=== PATIENT | male | born 1950 | race Caucasian/White ===

== ENCOUNTER 2019-05-15 17:38 | Emergency (ER) | payer OTHER ==
[2019-05-15] MEDS ORDERED: Sodium Chloride 0.9% 10 ML Syringe FLUSH PRN ×2 (17:43)
[2019-05-15] MEDS ORDERED: Aspirin 81 MG Tab.Chew PO ONE (17:53)
--- NOTE | 2019-05-15 17:57 | EDM.PDOC ---
<OfficerReese - Last Filed: 05/15/19 17:51> ED HPI GENERAL MEDICAL PROBLEM - General Stated Complaint: STROKE Time Seen by Provider: 05/15/19 17:42 Source of Information: Reports: Patient, EMS, RN Notes Reviewed History Limitations: Reports: No Limitations - History of Present Illness INITIAL COMMENTS - FREE TEXT/NARRATIVE: 68-year-old gentleman presents emergency department today via EMS services, last known well time was approximately 18 hours prior, he does admit to having some nausea and vomiting dry heaves was on the floor however when he awoke he had difficulty getting to the phone was found by friends this afternoon. EMS services were called stroke alert was called in the field unfortunately aircraft cannot fly due to weather. - Related Data Allergies Allergy/AdvReac Type Severity Reaction Status Date / Time No Known Allergies Allergy Verified 05/15/19 18:07 Home Meds: Home Meds Aspirin 81 mg PO DAILY 05/15/19 [History] Diclofenac Sodium [Voltaren] 75 mg PO BID 05/15/19 [History] Insulin Glarg,Human.Rec.Analog [Lantus Solostar] 24 units SUBCNJ DAILY 05/15/19 [History] amLODIPine [Norvasc] 5 mg PO DAILY 05/15/19 [History] atorvaSTATin [Lipitor] 40 mg PO DAILY 05/15/19 [History] glipiZIDE [Glucotrol XL] 10 mg PO BID 05/15/19 [History] metFORMIN [Glucophage] 1,000 mg PO DAILY 05/15/19 [History] Past Medical History Cardiovascular History: Reports: Blood Clots/VTE/DVT, Hypertension Social & Family History - Tobacco Use Smoking Status *Q: Current Every Day Smoker ED ROS GENERAL - Review of Systems Review Of Systems: See Below Constitutional: Reports: No Symptoms HEENT: Reports: Eye Discharge Respiratory: Reports: No Symptoms Cardiovascular: Reports: No Symptoms GI/Abdominal: Reports: No Symptoms : Reports: No Symptoms Musculoskeletal: Reports: No Symptoms Skin: Reports: No Symptoms Neurological: Reports: Difficulty Walking, Weakness ED EXAM, NEURO - Physical Exam Exam: See Below Text/Narrative:: General: Male, not in any distress, alert and oriented x3 HEENT: head is dried blood is appreciated on the helix of the left ear and left corner of the mouth he was normocephalic, eyes pupils equal round reactive to light, sclera clear no conjunctivitis appreciated, extraocular eye movements intact visual locke are full. Ears tympanic membranes clear and ocasio landmarks and light reflex are present bilaterally canals are clear. Nose no septal deviation, nares are clear, no blood present. Mouth mucosa is moist and pink no erythema or exudate noted in soft palate, tongue is midline uvula is midline, dentition is intact. Neck: Supple no thyromegaly no tracheal deviation. Nodes: Cervical nodes subclavicular nodes nontender no palpable lymphadenopathy noted. Lungs: clear to auscultation bilaterally with symmetrical respirations, no adventitious noise appreciated. CV: Regular rate and rhythm S1 and S2 appreciated no murmurs rubs or gallops noted. Abdomen: Soft, nontender, no palpable masses or organomegaly appreciated, no distention no guarding bowel sounds are present, . Neuro: Cranial nerves II test with pupillary light reflex 5 mm to 3 mm bilaterally, CN III test pupillary constriction, lid elevation and eye abduction bilaterally, CN IV downward movement of eyes bilaterally, CN V good jaw movement, CN lateral deviation of the eyes bilaterally to finger movement , CN VII symmetrical smile shows teeth without difficulty, CN VIII pass finger rub to ears bilaterally, CN IX adequate voice and tone, CN X adequate voice and tone no difficulty swallowing, CN XI can shrug shoulders without difficulty, CN XII can stick tongue out without difficulty, cranial nerves II to XII intact as tested, power is 5 out 5 in upper and lower extremities on the right, left lower extremity is a 4 out of 5 left upper extremity is 2 out of 5, p Skin: Warm and dry, intact Extremities: No lower extremity edema appreciated, pedal pulse is +2. Course - Vital Signs Last Recorded V/S: Last Vital Signs Temp 98.8 F 05/15/19 17:55 Pulse 95 05/15/19 18:24 Resp 13 05/15/19 18:24 BP 148/78 H 05/15/19 18:24 Pulse Ox 98 05/15/19 18:24 - Orders/Labs/Meds Orders: Active Orders 24 hr Category Date Time Status EKG Documentation Completion [RC] ASDIRECTED Care 05/15/19 17:44 Active Peripheral IV Care [RC] . DIRECTED Care 05/15/19 17:44 Active Peripheral IV Insertion Adult [OM.PC] Urgent Oth 05/15/19 17:43 Ordered EKG 12 Lead [EK] Urgent Ther 05/15/19 17:43 Ordered Labs: Laboratory Tests 05/15/19 05/15/19 05/15/19 Range/Units 17:57 17:57 17:57 WBC 13.7 H (4.5-11.0) K/uL RBC 4.56 (4.30-5.90) M/uL Hgb 14.5 (12.0-15.0) g/dL Hct 42.8 (40.0-54.0) % MCV 94 (80-98) fL MCH 32 H (27-31) pg MCHC 34 (32-36) % Plt Count 208 (150-400) K/uL Neut % (Auto) 87 H (36-66) % Lymph % (Auto) 7 L (24-44) % Summers % (Auto) 6 (2-6) % Eos % (Auto) 0 L (2-4) % Baso % (Auto) 0 (0-1) % Sodium 139 L (140-148) mmol/L Potassium 4.6 (3.6-5.2) mmol/L Chloride 103 (100-108) mmol/L Carbon Dioxide 22 (21-32) mmol/L Anion Gap 18.6 H (5.0-14.0) mmol/L BUN 19 H (7-18) mg/dL Creatinine 1.4 H (0.8-1.3) mg/dL Est Cr Clr Drug Dosing 45.75 mL/min Estimated GFR (MDRD) 50 L (>60) Glucose 203 H (74-106) mg/dL Lactic Acid (0.4-2.0) mmol/L Calcium 9.7 (8.5-10.1) mg/dL Magnesium 1.4 L (1.8-2.4) mg/dL Total Bilirubin 0.5 (0.2-1.0) mg/dL AST 34 (15-37) U/L ALT 48 (12-78) U/L Alkaline Phosphatase 116 (46-116) U/L Ammonia 7 L (11-32) mmol/L Creatine Kinase (39-308) U/L Troponin I 0.585 H* (0.000-0.056) ng/mL Total Protein 7.5 (6.4-8.2) g/dL Albumin 4.0 (3.4-5.0) g/dL Globulin 3.5 (2.3-3.5) g/dL Albumin/Globulin Ratio 1.1 L (1.2-2.2) Urine Color (YELLOW) Urine Appearance (CLEAR) Urine pH (5.0-8.0) Ur Specific [place] (1.008-1.030) Urine Protein (NEGATIVE) mg/dL Urine Glucose (UA) (NEGATIVE) mg/dL Urine Ketones (NEGATIVE) mg/dL Urine Occult Blood (NEGATIVE) Urine Nitrite (NEGATIVE) Urine Bilirubin (NEGATIVE) Urine Urobilinogen (0.2-1.0) EU/dL Ur Leukocyte Esterase (NEGATIVE) Urine RBC (0-5) Urine WBC (0-5) Ur Epithelial Cells Amorphous Sediment Urine Bacteria Urine Mucus Ethyl Alcohol mg/dL 05/15/19 05/15/19 05/15/19 Range/Units 17:57 17:57 17:57 WBC (4.5-11.0) K/uL RBC (4.30-5.90) M/uL Hgb (12.0-15.0) g/dL Hct (40.0-54.0) % MCV (80-98) fL MCH (27-31) pg MCHC (32-36) % Plt Count (150-400) K/uL Neut % (Auto) (36-66) % Lymph % (Auto) (24-44) % Summers % (Auto) (2-6) % Eos % (Auto) (2-4) % Baso % (Auto) (0-1) % Sodium (140-148) mmol/L Potassium (3.6-5.2) mmol/L Chloride (100-108) mmol/L Carbon Dioxide (21-32) mmol/L Anion Gap (5.0-14.0) mmol/L BUN (7-18) mg/dL Creatinine (0.8-1.3) mg/dL Est Cr Clr Drug Dosing mL/min Estimated GFR (MDRD) (>60) Glucose (74-106) mg/dL Lactic Acid 3.4 H (0.4-2.0) mmol/L Calcium (8.5-10.1) mg/dL Magnesium (1.8-2.4) mg/dL Total Bilirubin (0.2-1.0) mg/dL AST (15-37) U/L ALT (12-78) U/L Alkaline Phosphatase (46-116) U/L Ammonia (11-32) mmol/L Creatine Kinase 829 H (39-308) U/L Troponin I (0.000-0.056) ng/mL Total Protein (6.4-8.2) g/dL Albumin (3.4-5.0) g/dL Globulin (2.3-3.5) g/dL Albumin/Globulin Ratio (1.2-2.2) Urine Color (YELLOW) Urine Appearance (CLEAR) Urine pH (5.0-8.0) Ur Specific [place] (1.008-1.030) Urine Protein (NEGATIVE) mg/dL Urine Glucose (UA) (NEGATIVE) mg/dL Urine Ketones (NEGATIVE) mg/dL Urine Occult Blood (NEGATIVE) Urine Nitrite (NEGATIVE) Urine Bilirubin (NEGATIVE) Urine Urobilinogen (0.2-1.0) EU/dL Ur Leukocyte Esterase (NEGATIVE) Urine RBC (0-5) Urine WBC (0-5) Ur Epithelial Cells Amorphous Sediment Urine Bacteria Urine Mucus Ethyl Alcohol < 3 mg/dL 05/15/19 Range/Units 18:09 WBC (4.5-11.0) K/uL RBC (4.30-5.90) M/uL Hgb (12.0-15.0) g/dL Hct (40.0-54.0) % MCV (80-98) fL MCH (27-31) pg MCHC (32-36) % Plt Count (150-400) K/uL Neut % (Auto) (36-66) % Lymph % (Auto) (24-44) % Summers % (Auto) (2-6) % Eos % (Auto) (2-4) % Baso % (Auto) (0-1) % Sodium (140-148) mmol/L Potassium (3.6-5.2) mmol/L Chloride (100-108) mmol/L Carbon Dioxide (21-32) mmol/L Anion Gap (5.0-14.0) mmol/L BUN (7-18) mg/dL Creatinine (0.8-1.3) mg/dL Est Cr Clr Drug Dosing mL/min Estimated GFR (MDRD) (>60) Glucose (74-106) mg/dL Lactic Acid (0.4-2.0) mmol/L Calcium (8.5-10.1) mg/dL Magnesium (1.8-2.4) mg/dL Total Bilirubin (0.2-1.0) mg/dL AST (15-37) U/L ALT (12-78) U/L Alkaline Phosphatase (46-116) U/L Ammonia (11-32) mmol/L Creatine Kinase (39-308) U/L Troponin I (0.000-0.056) ng/mL Total Protein (6.4-8.2) g/dL Albumin (3.4-5.0) g/dL Globulin (2.3-3.5) g/dL Albumin/Globulin Ratio (1.2-2.2) Urine Color Yellow (YELLOW) Urine Appearance Clear (CLEAR) Urine pH 5.5 (5.0-8.0) Ur Specific [place] 1.025 (1.008-1.030) Urine Protein 30 H (NEGATIVE) mg/dL Urine Glucose (UA) 250 H (NEGATIVE) mg/dL Urine Ketones 15 H (NEGATIVE) mg/dL Urine Occult Blood Trace-lysed H (NEGATIVE) Urine Nitrite Negative (NEGATIVE) Urine Bilirubin Negative (NEGATIVE) Urine Urobilinogen 0.2 (0.2-1.0) EU/dL Ur Leukocyte Esterase Negative (NEGATIVE) Urine RBC Not seen (0-5) Urine WBC 0-5 (0-5) Ur Epithelial Cells Rare Amorphous Sediment Not seen Urine Bacteria Few Urine Mucus Few Ethyl Alcohol mg/dL Meds: Medications Discontinued Medications Generic Name Dose Route Start Last Admin Trade Name Freq PRN Reason Stop Dose Admin Aspirin 324 mg 05/15/19 17:53 05/15/19 18:19 Aspirin PO 05/15/19 17:54 324 mg ONETIME ONE Administration Sodium Chloride 1,000 mls @ 500 mls/hr 05/15/19 18:45 05/15/19 18:43 Normal Saline IV 500 mls/hr ASDIRECTED FIGUEROA Administration Sodium Chloride 10 ml 05/15/19 17:43 Saline Flush FLUSH ASDIRECTED PRN Keep Vein Open Sodium Chloride 10 ml 05/15/19 17:43 Saline Flush FLUSH ASDIRECTED PRN Keep Vein Open Departure - Departure Disposition: DC/Tfer to Other 70 Clinical Impression: Elevated troponin Cerebrovascular accident (CVA) Qualifiers: CVA mechanism: unspecified Qualified Code(s): I63.9 - Cerebral infarction, unspecified - Discharge Information Referrals: PCP,None [Primary Care Provider] - Forms: ED Department Discharge Care Plan Goals: Patient will be transferred to [facility] for further neurology workup due to likely right-sided ischemic CVA. <Evna Demarco - Last Filed: 05/15/19 22:11> Course - Re-Assessments/Exams Free Text/Narrative Re-Assessment/Exam: 05/15/19 18:33 68-year-old male with likely right ischemic event, causing some left-sided weakness. Initial workup and evaluation with Dr. Officer, CT scan is negative. Creatinine kinase 829, white count 13.7. Discussed his condition with interventional neurology in [place], they recommended admission to the hospitalist service for stroke workup but no acute intervention. Dr. Astudillo kindly agreed to accept the patient for the hospitalist service. He'll be transferred with IV fluids running. 05/15/19 18:34 Patient was accepted at 1830 p.m. 05/15/19 18:51 Chemistry profile returned, creatinine is 1.4 and GFR 50. His troponin was elevated at 0.58. This was relayed to [place]. 05/15/19 19:07 Urine returned with some glucose, mild concentration with ketones but no inflammation or infection. Departure - Departure Time of Disposition: 19:05
--- NOTE | 2019-05-15 18:13 | CRLCT ---
INDICATION: LOC following fall TECHNIQUE: CT head without contrast. COMPARISON: None FINDINGS: CSF spaces: Within normal limits for age. Brain parenchyma: The ocasio-white differentiation is normal. No sign of mass, hemorrhage, or midline shift. Skull base and calvarium: The visualized paranasal sinuses and mastoid air cells demonstrate no acute or significant findings. The visualized orbits are grossly unremarkable. No skull fractures. IMPRESSION: Unremarkable noncontrast head CT. Dictated by Bertin Mccullough MD @ 05/15/2019 6:12:11 PM Please note that all CT scans at this facility use dose modulation, iterative reconstruction, and/or weight-based dosing when appropriate to reduce radiation dose to as low as reasonably achievable. Dictated by: Bertin Mccullough MD @ 05/15/2019 18:12:18 (Electronically Signed)
[2019-05-15] MEDS ORDERED: Sodium Chloride 0.9% 1,000 ML IV SCH (18:45)
== END 2019-05-15 19:50 | disposition other institution (70) ==
LOC: JP.ED 17:38
DX: R79.89 Other specified abnormal findings of blood chemistry (principal); I63.9 Cerebral infarction, unspecified; I10 Essential (primary) hypertension; F17.200 Nicotine dependence, unspecified, uncomplicated; Z79.82 Long term (current) use of aspirin; Z79.899 Other long term (current) drug therapy
CPT/HCPCS: 36415; 70450; 80053; 80320; 81001; 82140; 82550; 83605; 83735; 84484; 85025; 93005; 96360; 99285; A9270; J7030; G0480

== ENCOUNTER 2023-06-27 05:13 | Emergency (ER) | payer OTHER, MEDICARE ==
[2023-06-27] MEDS ORDERED: Sodium Chloride 0.9% 10 ML Syringe FLUSH PRN ×2 (05:21→06:17)
[2023-06-27 05:39] LABS: BASOPHILS ABSOLUTE AUTO 0.04 K/uL (0.00-0.10); BASOPHILS PERCENT AUTO 0.4 % (0.1-1.3); EOSINOPHILS ABSOLUTE AUTO 0.05 K/uL (0.00-0.40); EOSINOPHILS PERCENT AUTO 0.5 % (0.0-5.4); HEMATOCRIT 44.7 % (38.4-49.7); HEMOGLOBIN 15.2 g/dL (12.9-16.9); IMMATURE GRAN ABSOLUTE AUTO 0.06 K/uL (0.00-0.23); IMMATURE GRAN PERCENT AUTO 0.6 % (0.0-0.7); LYMPHOCYTES PERCENT AUTO 22.5 % (11.4-47.7); MEAN CORPUSCULAR HEMOGLOBIN 31.7 pg (31.6-35.5); MEAN CORPUSCULAR VOLUME 93.1 fL (81.4-99.0); MONOCYTES PERCENT AUTO 5.1 % (3.3-12.6); NEUTROPHILS ABSOLUTE AUTO 6.93 K/uL (1.0-7.6); NEUTROPHILS PERCENT AUTO 70.9 % (40.0-78.1); PLATELET COUNT,PLT 188 K/uL (130-375); WHITE BLOOD CELL COUNT,WBC 9.8 K/uL (3.2-11.0)
[2023-06-27 06:09] LABS: ALANINE AMINOTRANSFERASE,ALT 14 U/L (12-78); ALBUMIN 3.4 g/dL (3.4-5.0); ALKALINE PHOSPHATASE 113 U/L (46-116); ASPARTATE AMNIOTRANSFERASE,AST 10 U/L (15-37); BILIRUBIN TOTAL 0.4 mg/dL (0.2-1.0); BLOOD UREA NITROGEN,BUN 21 mg/dL (7-18); C-REACTIVE PROTEIN 0.68 mg/dL (0.0-0.3); CALCIUM 8.7 mg/dL (8.5-10.1); CARBON DIOXIDE,CO2 26 mmol/L (21-32); CHLORIDE,CL 103 mmol/L (100-108); CREATININE 1.5 mg/dL (0.8-1.3); EST CRCL DRUG DOSING (CG) 38.15 mL/min; ESTIMATED GFR 49 mL/min (>60); GLUCOSE RANDOM 202 mg/dL (74-106); POTASSIUM,K 3.8 mmol/L (3.6-5.2); PROTEIN TOTAL,TP 6.8 g/dL (6.4-8.2); SODIUM,NA 139 mmol/L (140-148)
[2023-06-27 06:10] LABS: ANION GAP 13.8 mmol/L (5.0-14.0)
[2023-06-27 06:14] LABS: LACTIC ACID 2.3 mmol/L (0.4-2.0)
[2023-06-27] MEDS ORDERED: Iopamidol 612 MG/ML 100 ML Bottle IV PRN (06:17)
[2023-06-27] MEDS ORDERED: Sodium Chloride 0.9% 50 ML IV SCH (06:30)
[2023-06-27 06:34] LABS: CORONAVIRUS COVID-19 NAA NEGATIVE (NEGATIVE); INFLUENZA A NAA NEGATIVE (NEGATIVE); INFLUENZA B NAA NEGATIVE (NEGATIVE); RESPIRATORY SYNCYTIAL VIR NAA NEGATIVE (NEGATIVE)
[2023-06-27] MEDS ORDERED: Acetaminophen/HYDROcodone 325-5 MG Tab PO ONE (06:38)
[2023-06-27] MEDS ORDERED: Tamsulosin 0.4 MG Cap.ER PO ONE (06:38)
== END 2023-06-27 06:57 | disposition home or self-care (01) ==
LOC: JP.ED 05:13
DX: N20.1 Calculus of ureter (principal); N23 Unspecified renal colic; I10 Essential (primary) hypertension; E11.9 Type 2 diabetes mellitus without complications; Z79.84 Long term (current) use of oral hypoglycemic drugs; Z79.4 Long term (current) use of insulin; Z79.02 Long term (current) use of antithrombotics/antiplatelets; Z79.899 Other long term (current) drug therapy; Z20.822 Contact with and (suspected) exposure to COVID-19; M19.90 Unspecified osteoarthritis, unspecified site
CPT/HCPCS: 0241U; 36415; 74177; 80053; 83605; 84145; 85025; 86140; 99284; A9270; J3490; Q9967

== ENCOUNTER 2023-06-28 13:18 | Emergency (ER) | payer MEDICARE, OTHER ==
[2023-06-28] MEDS ORDERED: Naloxone 0.4 MG/ML SDV IVPUSH PRN (13:28)
[2023-06-28] MEDS: Sodium Chloride 0.9% 1,000 ML IV ONE (13:53)
[2023-06-28 14:02] LABS: BASOPHILS PERCENT AUTO 0.1 % (0.1-1.3); HEMATOCRIT 44.3 % (38.4-49.7); HEMOGLOBIN 15.2 g/dL (12.9-16.9); IMMATURE GRAN ABSOLUTE AUTO 0.05 K/uL (0.00-0.23); IMMATURE GRAN PERCENT AUTO 0.4 % (0.0-0.7); LYMPHOCYTES ABSOLUTE AUTO 0.75 K/uL (0.8-3.3); MEAN CORPUSCULAR HEMOGLOBIN 31.7 pg (31.6-35.5); MEAN CORPUSCULAR HGB CONC 34.3 g/dL (31.6-35.5); MEAN CORPUSCULAR VOLUME 92.5 fL (81.4-99.0); MONOCYTES ABSOLUTE AUTO 0.81 K/uL (0.20-0.90); MONOCYTES PERCENT AUTO 6.5 % (3.3-12.6); NEUTROPHILS ABSOLUTE AUTO 10.89 K/uL (1.0-7.6); PLATELET COUNT,PLT 152 K/uL (130-375); RED BLOOD CELL COUNT 4.79 M/uL (4.14-5.76); WHITE BLOOD CELL COUNT,WBC 12.5 K/uL (3.2-11.0)
[2023-06-28 14:04] LABS: BASOPHILS ABSOLUTE AUTO 0.01 K/uL (0.00-0.10)
[2023-06-28] MEDS: HYDROmorphone 0.5 MG/0.5 ML Syringe IVPUSH ONE (14:08)
[2023-06-28] MEDS: Sodium Chloride 0.9% 10 ML Syringe FLUSH PRN (14:09)
[2023-06-28 14:15] LABS: CALCIUM 9.1 mg/dL (8.5-10.1); CREATININE 2.2 mg/dL (0.8-1.3); EST CRCL DRUG DOSING (CG) 26.01 mL/min; POTASSIUM,K 3.9 mmol/L (3.6-5.2)
[2023-06-28 14:18] LABS: ANION GAP 16.9 mmol/L (5.0-14.0)
[2023-06-28 14:22] LABS: LACTIC ACID 2.4 mmol/L (0.4-2.0)
[2023-06-28 14:50] LABS: CORONAVIRUS COVID-19 NAA NEGATIVE (NEGATIVE); INFLUENZA A NAA NEGATIVE (NEGATIVE); INFLUENZA B NAA NEGATIVE (NEGATIVE); RESPIRATORY SYNCYTIAL VIR NAA NEGATIVE (NEGATIVE)
[2023-06-28] MEDS: Sodium Chloride 0.9% 500 ML IV ONE (15:00)
[2023-06-28 15:03] LABS: APPEARANCE,URINE CLEAR (CLEAR); BILIRUBIN,URINE NEGATIVE (NEGATIVE); COLOR,URINE YELLOW (YELLOW); GLUCOSE,URINE 250 mg/dL (NEGATIVE); KETONES,URINE NEGATIVE (NEGATIVE); LEUKOCYTE ESTERASE,URINE NEGATIVE (NEGATIVE); NITRITE,URINE NEGATIVE (NEGATIVE); OCCULT BLOOD,URINE MODERATE (NEGATIVE); PH,URINE 5.5 (5.0-8.0); PROTEIN,URINE TRACE mg/dL (NEGATIVE); UROBILINOGEN,URINE 0.2 EU/dL (0.2-1.0)
[2023-06-28 15:08] LABS: WBC,URINE 0-5 (0-5)
[2023-06-28 15:09] LABS: AMORPHOUS SEDIMENT,URINE RARE; BACTERIA,URINE RARE; EPITHELIAL CELLS,URINE RARE; MUCUS,URINE NOT SEEN
[2023-06-28] MEDS: Meropenem 1 GM in Sodium Chloride 0.9% 100 ML IV ONE (15:29)
[2023-06-28] MEDS: Sodium Chloride 0.9% 1,000 ML IV SCH (16:23)
== END 2023-06-28 21:06 ==
LOC: JP.ED 13:18
DX: N13.2 Hydronephrosis with renal and ureteral calculous obstruction (principal); N17.9 Acute kidney failure, unspecified; N12 Tubulo-interstitial nephritis, not specified as acute or chronic; I10 Essential (primary) hypertension; E11.9 Type 2 diabetes mellitus without complications; F17.210 Nicotine dependence, cigarettes, uncomplicated; Z79.84 Long term (current) use of oral hypoglycemic drugs; Z79.899 Other long term (current) drug therapy; Z20.822 Contact with and (suspected) exposure to COVID-19; Z79.82 Long term (current) use of aspirin; Z79.4 Long term (current) use of insulin
CPT/HCPCS: 0241U; 36415; 71045; 71250; 74176; 80048; 81001; 82947; 83605; 84145; 85025; 86140; 87040; 87086; 96361; 96365; 96366; 96367; 96375; 99285; J1170; J2185; J3370; J3490; J7030; J7040; J7050